=== PATIENT | male | born 1980 | race American Indian/Alaskan Native ===

== ENCOUNTER 2016-10-13 18:12 | Emergency (ER) | payer BC, MEDICAID ==
--- NOTE | 2016-10-13 18:37 | EDM.PDOC ---
[id number]: BITE ON STOMACH, [id number] Time Seen by Provider: 10/13/16 18:37 Source of Information: Reports: Patient History Limitations: Reports: No Limitations - History of Present Illness INITIAL COMMENTS - FREE TEXT/NARRATIVE: states that he has a bug bite on his abdomen. States that it happened a couple nights ago and had a small amount of drainage. No drainage noted currently. Onset: Unknown/Unsure Duration: Getting Worse Location: Reports: Abdomen Quality: Reports: Ache Severity: Mild Associated Symptoms: Reports: No Other Symptoms - Related Data Allergies Allergy/AdvReac Type Severity Reaction Status Date / Time No Known Allergies Allergy Verified 10/13/16 18:16 Home Meds: Home Meds . [No Known Home Meds] 06/28/13 [History] Past Medical History - Past Health History Medical/Surgical History: Denies Medical/Surgical History Social & Family History - Family History Family Medical History: Noncontributory - Tobacco Use Smoking Status *Q: Current Every Day Smoker Years of Tobacco use: 6 Packs/Tins Daily: 1 Used Tobacco, but Quit: No Second Hand Smoke Exposure: Yes - Caffeine Use Caffeine Use: Reports: Coffee, Energy Drinks, Soda, Tea - Recreational Drug Use Recreational Drug Use: Yes Recreational Drug Type: Reports: Marijuana/Hashish Recreational Drug Use Frequency: Monthly ED ROS GENERAL - Review of Systems Review Of Systems: ROS reveals no pertinent complaints other than HPI. ED EXAM, SKIN/RASH Exam: See Below Exam Limited By: No Limitations General Appearance: Alert, WD/WN, No Apparent Distress Respiratory/Chest: No Respiratory Distress, Lungs Clear, Normal Breath Sounds, No Accessory Muscle Use, Chest Non-Tender Cardiovascular: Normal Peripheral Pulses, Regular Rate, Rhythm, No Edema, No Gallop, No JVD, No Murmur, No Rub Skin: Warm, Dry, Intact, Erythema (blanchable ) Characteristics: Papular Associated features: Warmth, Tenderness, Inflammation Course - Vital Signs Last Recorded V/S: Last Vital Signs Temp 98.2 F 10/13/16 18:19 Pulse 78 10/13/16 18:19 Resp 18 10/13/16 18:19 BP 145/87 H 10/13/16 18:19 Pulse Ox 100 10/13/16 18:19 Departure - Departure Time of Disposition: 18:49 Disposition: Home, Self-Care 01 Condition: Good Clinical Impression: Insect bite Qualifiers: Encounter type: initial encounter Qualified Code(s): W57.XXXA - Bitten or stung by nonvenomous insect and other nonvenomous arthropods, initial encounter - Discharge Information Instructions: Insect Bite, [id number] Referrals: PCP,None [Ordering Only Provider] - Forms: ED Department Discharge, Return to Work/School Form
== END 2016-10-13 18:52 | disposition home or self-care (01) ==
LOC: DL.ED 18:12
CPT/HCPCS: 99281

== ENCOUNTER 2020-09-25 16:11 | Emergency (ER) | payer BC, MEDICAID ==
[2020-09-25 16:31] VITALS: BP 135/82; PULSE 88
[2020-09-25] MEDS ORDERED: Ibuprofen 800 MG Tab PO ONE (17:15)
[2020-09-25] MEDS ORDERED: traMADol 50 MG Tab PO ONE (17:15)
--- NOTE | 2020-09-25 17:19 | CR ---
PROCEDURE INFORMATION: Exam: XR Right Hand Exam date and time: 09/25/2020 4:46 PM Age: 40 years old Clinical indication: Injury or trauma; Other: Horse injury; Blunt trauma (contusions or hematomas); Hand; Right; Injury date: 09/25/2020; Additional info: RT hand injury TECHNIQUE: Imaging protocol: XR Right hand. Views: 3 or more views. Total images: 3 COMPARISON: No relevant prior studies available. FINDINGS: Bones/joints: Normal. Soft tissues: Normal. IMPRESSION: No acute findings.
--- NOTE | 2020-09-25 17:29 | EDM.PDOC ---
Scribed by Char Salinas 09/25/20 [id number] for Selin Peck MD ED HPI GENERAL MEDICAL PROBLEM - General Chief Complaint: Upper Extremity Injury/Pain Stated Complaint: BROKE RIGHT HAND PER PT Time Seen by Provider: 09/25/20 16:30 Source of Information: Reports: Patient, RN, RN Notes Reviewed History Limitations: Reports: No Limitations - History of Present Illness INITIAL COMMENTS - FREE TEXT/NARRATIVE: Patient presents to ED by POV stating that he was horse back riding and reign snapped and the horse got away. Patient states "think I broke my right hand", s ent here by [facility]. He rates the pain 12/26. Patient states he took Tylenol 650 at 0900. The hand is swollen and states fingers tingly and feels better to keep hand up. Onset Date: 09/24/20 Duration: Getting Worse Location: Reports: Upper Extremity, Right Quality: Reports: Ache Severity: Moderate Improves with: Reports: None Worsens with: Reports: None Associated Symptoms: Reports: No Other Symptoms Right Hand Pain Score (Numeric/FACES): 9 - Related Data Allergies Allergy/AdvReac Type Severity Reaction Status Date / Time No Known Allergies Allergy Verified 09/25/20 16:31 Home Meds: Home Meds . [No Known Home Meds] 06/28/13 [History] Past Medical History - Past Health History Medical/Surgical History: Denies Medical/Surgical History HEENT History: Reports: None Cardiovascular History: Reports: None Respiratory History: Reports: None Gastrointestinal History: Reports: None Genitourinary History: Reports: None Musculoskeletal History: Reports: None Neurological History: Reports: None Psychiatric History: Reports: None Endocrine/Metabolic History: Reports: None Hematologic History: Reports: None Immunologic History: Reports: None Oncologic (Cancer) History: Reports: None Dermatologic History: Reports: None - Infectious Disease History Infectious Disease History: Reports: Chicken Pox, Measles - Past Surgical History Head Surgeries/Procedures: Reports: None Social & Family History - Family History Family Medical History: No Pertinent Family History - Tobacco Use Tobacco Use Status *Q: Current Every Day Tobacco User Years of Tobacco use: 15 Packs/Tins Daily: 0.5 Second Hand Smoke Exposure: No - Caffeine Use Caffeine Use: Reports: Coffee, Soda - Recreational Drug Use Recreational Drug Type: Reports: Marijuana/Hashish Other Recreational Drug Type: week ago Review of Systems - Review of Systems Review Of Systems: Comprehensive ROS is negative, except as noted in HPI. ED EXAM, GENERAL - Physical Exam Exam: See Below Exam Limited By: No Limitations General Appearance: Alert, WD/WN, No Apparent Distress Throat/Mouth: Normal Voice, No Airway Compromise Head: Atraumatic, Normocephalic Neck: Normal Inspection Respiratory/Chest: No Respiratory Distress Cardiovascular: Normal Peripheral Pulses Back Exam: Normal Inspection Extremities: Normal Capillary Refill, Limited Range of Motion (Rt hand with tenderness and soft tissue swelling, no deformtiy.). No: Joint Swelling Neurological: Alert, Oriented, No Motor/Sensory Deficits Psychiatric: Normal Mood Skin Exam: Warm, Dry, Intact, Normal Color, No Rash ED TRAUMA EXTREMITY PROCEDURES - Splinting Right Upper Extremity Splint Site: Right hand Pre-Procedure NV Status: Normal Post-Procedure NV Status: Normal Splint Material: Metal Splint Design: Volar Applied & Form Fitted By: Provider Provider Post-Splint Application NV Check: NV Status Normal, Good Position Complications: No Course - Vital Signs Last Recorded V/S: Last Vital Signs Temp 97.8 F 09/25/20 16:27 Pulse 88 09/25/20 16:27 Resp 16 09/25/20 16:27 BP 135/82 09/25/20 16:27 Pulse Ox 99 09/25/20 16:27 - Orders/Labs/Meds Orders: Active Orders 24 hr Category Date Time Status Splinting [RC] ASDIRECTED Care 09/25/20 17:15 Ordered Meds: Medications Discontinued Medications Generic Name Dose Route Start Last Admin Trade Name Josefina PRN Reason Stop Dose Admin Ibuprofen 800 mg 09/25/20 17:15 Ibuprofen 800 Mg Tab PO 09/25/20 17:16 ONETIME ONE Tramadol HCl 50 mg 09/25/20 17:15 Tramadol 50 Mg Tab PO 09/25/20 17:16 ONETIME ONE - Radiology Interpretation Free Text/Narrative:: [facility] Final Radiology Report Call: [phone] assistance Online chat: [email or web address] Name: RASHIDA WELCH Age: 40Years M Date: 09/25/2020 SSN: -- : [id number] Study: CR HAND COMP MIN 3V RT Requesting Physician: SELIN PECK Images: 3 Addl Studies: Provided Clinical History: Rt hand injury Contrast: Contrast Medium: Contrast Amount: Contrast Method: CONFIDENTIALITY STATEMENT This report is intended only for use by the referring physician, and only in accordance with law. If you received this in error, call [phone]. Page 1 of 1 PROCEDURE INFORMATION: Exam: XR Right Hand Exam date and time: 09/25/2020 4:46 PM Age: 40 years old Clinical indication: Injury or trauma; Other: Horse injury; Blunt trauma (contusions or hematomas); Hand; Right; Injury date: 09/25/2020; Additional info: RT hand injury TECHNIQUE: Imaging protocol: XR Right hand. Views: 3 or more views. Total images: 3 COMPARISON: No relevant prior studies available. FINDINGS: Bones/joints: Normal. Soft tissues: Normal. IMPRESSION: No acute findings. Thank you for allowing us to participate in the care of your patient. Dictated and Authenticated by: Yoni Estrada MD 09/25/2020 5:19 PM Central Time ([place] & [place]) Departure - Departure Time of Disposition: 17:26 Disposition: Home, Self-Care 01 Condition: Good Clinical Impression: Contusion of right hand, initial encounter, Sprain of unspecified part of right wrist and hand, initial encounter - Discharge Information *PRESCRIPTION DRUG MONITORING PROGRAM REVIEWED*: Not Applicable *COPY OF PRESCRIPTION DRUG MONITORING REPORT IN PATIENT BALDEV: Not Applicable Instructions: Hand Contusion, [id number] Forms: ED Department Discharge Additional Instructions: Wear right hand splint for up to 5 days as needed for comfort. Ice pack and elevate right hand to reduce pain and swelling. Follow up in clinic next week if not improving as expected. Sepsis Event Note (ED) - Evaluation Sepsis Screening Result: No Definite Risk - Focused Exam Vital Signs: Vital Signs Temp Pulse Resp BP Pulse Ox 09/25/20 16:27 97.8 F 88 16 135/82 99 - My Orders Last 24 Hours: My Active Orders 09/25/20 17:15 Splinting [RC] ASDIRECTED - Assessment/Plan Last 24 Hours: My Active Orders 09/25/20 17:15 Splinting [RC] ASDIRECTED I have read and agree with the documentation that has been completed regarding this visit. By signing this record, I attest that the documentation was completed in my physical presence and is an accurate record of the encounter.
== END 2020-09-25 17:38 | disposition home or self-care (01) ==
LOC: DL.ED 16:11
DX: S63.501A Unspecified sprain of right wrist, initial encounter (principal); Z72.0 Tobacco use; W17.89XA Other fall from one level to another, initial encounter; Y93.52 Activity, horseback riding
CPT/HCPCS: 73130-RT; 99283; 99283-25; A9270-GY

== ENCOUNTER 2022-09-22 22:04 | Emergency (ER) | payer MEDICAID ==
[2022-09-22] MEDS ORDERED: Tetracaine HCl/PF 0.5% 4 ML Bottle EYEBOTH ONE (22:07)
[2022-09-22] MEDS ORDERED: Fluorescein 1 MG Ophth Strip EYEBOTH ONE (22:07)
[2022-09-22] MEDS ORDERED: Take Home: Amoxicillin/Clavulanate K 875-125 MG Tab, 6 Tab Pack PO ONE (22:25)
[2022-09-22 22:32] VITALS: PULSE 77
[2022-09-22 22:45] VITALS: BP 135/85
== END 2022-09-22 22:49 | disposition home or self-care (01) ==
LOC: DL.ED 22:04
DX: S00.212A Abrasion of left eyelid and periocular area, initial encounter (principal); W55.03XA Scratched by cat, initial encounter
CPT/HCPCS: 99282; 99283; A9270-GY